=== PATIENT | female | born 1945 | race Caucasian/White ===

== ENCOUNTER → 2016-11-26 | Outpatient (CLI) | payer MEDICARE, OTHER ==
--- NOTE | 2016-11-26 13:43 | Diagnostic Imaging Report ---
EXAMINATION: Bilateral diagnostic mammogram with a Computer Aided Detection (CAD) system. COMPARISON: 11/14/2015. INDICATION: Palpable lump in the right breast. FINDINGS: The breasts are composed of heterogeneously dense parenchyma in the right breast and scattered fibroglandular densities in the left breast. This global asymmetry in the parenchymal density has been stable from multiple prior exams. There are benign-appearing calcifications noted. No definite developing mass, architectural distortion, or suspicious cluster of calcifications is identified. IMPRESSION: Stable mammographic findings. An ultrasound evaluation is pending. ACR BI-RADS Category 0: Incomplete. (Needs additional imaging evaluation). Result letter will be mailed to the patient. Note: At least 10% of breast cancer is not imaged by mammography. Dictated by: Dictated on workstation # [id number]
--- NOTE | 2016-11-26 13:50 | Diagnostic Imaging Report ---
EXAMINATION: Right breast ultrasound. INDICATION: Palpable lump in the right breast. FINDINGS: The retroareolar region and 4 quadrants of the breast were scanned with no underlying abnormality seen. IMPRESSION: Negative study. Clinical followup of the focal area recommended. BI-RADS 1. ACR BI-RADS Category 1: Negative. Dictated by: Dictated on workstation # [id number]
== END ==
LOC: RAD 12:50
PROVIDERS: ATTEND Obstetrics & Gynecology
DX: N63 Unspecified lump in breast (principal)
CPT/HCPCS: 76641; 77066

== ENCOUNTER → 2017-12-07 | Outpatient (CLI) | payer MEDICARE, OTHER ==
--- NOTE | 2017-12-08 13:39 | Diagnostic Imaging Report ---
INDICATION: Routine screening. COMPARISON: 11/26/2016 and 11/14/2015. TECHNIQUE: 2D and 3D bilateral screening mammography was performed with CAD. FINDINGS: Scattered fibroglandular densities are identified bilaterally. The parenchymal pattern appears stable. There are benign calcifications bilaterally. No dominant mass or malignant appearing microcalcifications are seen. The axillae are unremarkable. IMPRESSION: No mammographic features suspicious for malignancy are identified. ACR BI-RADS Category 2: Benign findings. Result letter will be mailed to the patient. Note: At least 10% of breast cancer is not imaged by mammography. Dictated by: Dictated on workstation # [id number]
== END ==
LOC: RAD 15:37
PROVIDERS: ATTEND Obstetrics & Gynecology
DX: Z12.31 Encounter for screening mammogram for malignant neoplasm of breast (principal)
CPT/HCPCS: 77067